=== PATIENT | female | born 1970 | race Caucasian/White ===

== ENCOUNTER 2024-09-24 06:15 | Outpatient (CLI) | payer MEDICARE, OTHER ==
[~2024-09-24 06:15] MED LIST: AMLO10TA13 PO; ATOR20TA66 PO; DIVA250T8 PO; ESTR0.5T29 PO; GABA-1555 PO; HYDR25TA4 PO; IBUP-1986 PO; LIDO700A47 TP; NITR0.4T48 PO; PANT40TA54 PO; TIZA-205 PO; TRAZ-251 PO; ZIPR20CA12 PO
== END 2024-09-24 23:59 | disposition home or self-care (01) ==
LOC: MRI02 06:15
PROVIDERS: ATTEND Family Medicine Sports Medicine
DX: M51.369 Other intervertebral disc degeneration, lumbar region without mention of lumbar back pain or lower extremity pain (principal); M48.061 Spinal stenosis, lumbar region without neurogenic claudication; M99.03 Segmental and somatic dysfunction of lumbar region; M77.9 Enthesopathy, unspecified; N85.4 Malposition of uterus; M54.50 Low back pain, unspecified
CPT/HCPCS: 72195